=== PATIENT | female | born 1970 | race Two or more races ===

== ENCOUNTER 2018-10-31 18:47 | Emergency (ER) | payer MEDICAID ==
--- OUTSIDE RECORDS SUMMARY | ~2018-10-31 | XMS | Clinical Summary ---
Demographics + + + | Address | [address] | | | [place] [address] | + + + | Home Phone | | + + + | Preferred Language | Unknown | + + + | Marital Status | Single | + + + | Orthodoxy Affiliation | Unknown | + + + [...] Phone | + + +---------+ + | YARY AGRAWAL | ECON | Unknown | | + + +---------+ + Care Team Providers + +------+ + | Care Traffic Attendant Name | Role | Phone | + +------+ + | Nicholas Denney DO | PP | Unavailable | + +------+ + Source Comments DELFINO is fully live on both [facility] Amb[facility] and [facility] InPatient.[facility] Allergies No Known Allergies Current Medications + + +-------+---------+------+------+-------+ | Prescription | Sig. | Disp. | Refills | Star | End | Statu | | | | | | t | Date | s | | | | | | Date | | | + + +-------+---------+------+------+-------+ | LEVOXYL OR | None Entered | | | | | Activ | | | | | | | | e | + + +-------+---------+------+------+-------+ | WELLBUTRIN OR | 25mg daily | | | | | Activ | | | | | | | | e | + + +-------+---------+------+------+-------+ | IBUPROFEN 600 MG | take 1 tablet | | | | | Activ | | TAB | (600mg) by oral | | | | | e | | | route 3 times per | | | | | | | | day with food | | | | | | + + +-------+---------+------+------+-------+ Active Problems Not on file Social History [...] on file | | + + + Last Filed Vital Signs + + + + | Vital Sign | Reading | Time Taken | + + + + | Blood Pressure | 100/58 | 01/08/2006 9:53 AM PDT | + + + + | Pulse | 60 | 01/08/2006 9:53 AM PDT | + + + + | Temperature | - | - | + + + + | Respiratory Rate | - | - | + + + + | Oxygen Saturation | - | - | + + + + | Inhaled Oxygen | - | - | | Concentration | | | + + + + | Weight | 67.8 kg (149 lb 8 | 01/08/2006 9:53 AM PDT | | | oz) | | + + + + | Height | - | - | + + + + | Body Mass Index | - | - | + + + + Plan of Treatment + + + + + | Health Maintenance | Due Date | Last Done | Comments | + + + + + | Pneumococcal (Adult) | | | | | (1 of 1 - PPSV23) | 9 | | | + + + + + | Influenza (Flu) | | | | | vaccination (#1) | 8 | | | + + + + + Results Not on filefrom Last 3 Months"
--- OUTSIDE RECORDS SUMMARY | ~2018-10-31 | XMS | Clinical Summary ---
Demographics + + + | Address | [address] | | | [place] [address] | + + + | Home Phone | | + + + | Preferred Language | Unknown | + + + | Marital Status | Single | + + + | Caodaism Affiliation | Unknown | + + + [...] Team Providers + +------+ + | Care Rubber Stamp Die Inspector Name | Role | Phone | + +------+ + | Nicholas Denney DO | PP | Unavailable | + +------+ + Source Comments DELFINO is fully live on both [facility] and [facility] Allergies No Known Allergies Current Medications [...]
--- OUTSIDE RECORDS SUMMARY | 2018-10-31 18:50 | XMS ---
PreManage Notification: STAR HO Security Project Manager/Design Manager Events No recent Security Events currently on file [facility] There are no care providers on record at this time. [facility] has no Care Guidelines for this patient. [place] VISIT COUNT (12 MO.) 1 ED [place] TOTAL 1 NOTE: Visits indicate total known visits. ED/UCC VISIT TRACKING (12 MO.) 10/31/2018 18:47 ED [place] TYPE: Emergency COMPLAINT: - RIGHT LEG PAIN INPATIENT VISIT TRACKING (12 MO.) No inpatient visits to display in this time frame [email or web address]
== END 2018-10-31 20:51 | disposition left against medical advice (07) ==
LOC: ED 18:47
DX: M79.604 Pain in right leg (principal); F17.200 Nicotine dependence, unspecified, uncomplicated
CPT/HCPCS: 99283-25

== ENCOUNTER 2019-06-19 01:39 | Observation (INO) | payer OTHER ==
[~2019-06-19] VITALS: Ht 167.6 cm; Wt 71.3 kg
--- OUTSIDE RECORDS SUMMARY | ~2019-06-19 | XMS | Encounter Summary ---
Demographics + + + | Address | [address] | | | [place] [address] | + + + | Home Phone | | + + + | Preferred Language | Unknown | + + + | Marital Status | Single | + + + | Yazidi Affiliation | Unknown | + + + | Race | White | + + + | Ethnic Group | Not or | + + + Author + + + | Organization | Unknown | + + + | Address | Unknown | + + + | Phone | Unavailable | + + + Support + + +---------+ + | Name | Relationship | Address | Phone | + + +---------+ + | Christine Pacheco | ECON | Unknown | | + + +---------+ + Care Team Providers + +------+ + | Care Inorganic Chemistry Teacher Name | Role | Phone | + +------+ + PCP | Unavailable | + +------+ + Encounter Details +--------+ + + + + | Date | Type | Department | Care Team | Description | +--------+ + + + + | 12/06/ | Office | | Note, Outpatient | Progress Note | | 2004 | Visit-Trans | | Clinic | | | | cribed | | | | +--------+ + + + + Social History + +-------+ +--------+------+ | Tobacco Use | Types | Packs/Day | Years | Date | | | | | Used | | + +-------+ +--------+------+ | Never Assessed | | | | | + +-------+ +--------+------+ + + + | Sex Assigned at | Date Recorded | | | | + + + | Not on file | | + + + + + + + | Job Start Date | Occupation | Industry | + + + + | Not on file | Not on file | Not on file | + + + + + + + + | Travel History | Travel Start | Travel End | + + + + + + | No recent travel history available. | + + documented as of this encounter Progress Notes Interface, Geographic Information Scientist In - 02/02/2005 7:08 AM PDTClinic Date: 12/07/2003 Clinic: [facility] Chief Complaint: Goiter and hyperactive thyroid. History of Present Illness: Ms. Villalobos is a 33-year-old woman with an insignificant past medical history who presents with feeling hyperactive, losing weight, hyperdefecation, feeling hot, anxiety, shortness of breath, and increased heart rate over the last 6 months. She believes she has lost about 25 pounds since her symptoms began, and she notes an enlargement of her thyroid gland over this 6-month period. She also notes some irritation in her eyes and notes that they are irritated by the light, wind, and her mother notes that they are "bugging out of her head." She also states she is having some difficulty swallowing certain foods. They feel like they are getting stuck in her throat. She has not noticed any changes in her voice. She had laboratory evaluation done on November 13, 2003, by her primary care provider, Dr. Dixon Jaramillo which reveals a total T4 of 28.9, a total T3 of 559 with an undetectable TSH. She did not have any imaging of her thyroid gland at that time nor is she taking any medications for this condition. Review of Systems: The patient is complaining of the symptoms noted in the history of present illness. The remainder of the complete 10 system review of systems is negative. Past Medical History: Status post hysterectomy for cervical dysplasia. Medications: None. Family History: Mother with hypothyroidism, nephew with hyperthyroidism, aunt with hyperthyroidism, and father of a heart attack at age 49. Social History: She smokes 1 pack per day. She is and has 4 children. She has a history of snorting methamphetamines and has not used any for the last week. Allergies: NKDA. Physical Examination Vital Signs: Weight 116.5 pounds, blood pressure 122/60, and heart rate 140 and regular. General: She is a very hyperactive female in no acute distress. HEENT: Her pupils are equal, round, and reactive to light and accommodation. Extraocular muscles are intact. She does have perhaps some doubling of her vision on extremes of gaze to the lateral superior left and right although this is difficult to assess. She may have some proptosis, but does have lid lag bilaterally. Neck: Supple, but she does have a goiter which is probably 100 g and measures at least 6 times normal size. She has no bruit and is slightly tender to palpation and regular in texture. There are no discrete nodules. Lungs: Clear to auscultation bilaterally. Heart: Regular rhythm. Tachycardic rate without murmurs, rubs, or gallops. Abdomen: Soft, nondistended, and nontender. Extremities: No clubbing, cyanosis, or edema. Neurologic: She does have a significant tremor in her bilateral outstretched extremities. Her reflexes in her bilateral upper extremities are 2+ bilaterally with normal relaxation phases. Skin: Warm, pink, and moist with no lesions. Psychiatric: She has a normal mood and affect and a somewhat rapid speech. Assessment and Plan 1. Hyperthyroidism, likely Graves' disease - Given the patient's symptoms, time course, and family history, the most likely diagnosis is Graves' disease. We will plan to initiate methimazole at 30 mg per day to gain control of her thyroid functions. We plan to check laboratory evaluation in 4 weeks and adjust the doses of her methimazole at that time. The patient was advised of the side effects of methimazole, what she can expect, and dangers of the medication. 2. We will also initiate metoprolol 50 mg extended release formula twice daily. She will plan to initiate 50 mg now and titrate up by heart rate as directed. She was also advised of the side effects of this medication. We will plan to see the patient back in our clinic in 2 months' time at which time we will discuss the more permanent treatment for her which given the size of her goiter will likely involve radioactive iodine ablation rather than continued methimazole therapy in order to induce remission. This patient was seen and examined with Dr. Ayleen Young who agrees with this assessment and plan. A total of 40 minutes was spent with this patient of which time, greater than 50% was spent in direct consultation with the patient regarding her illness. Janelle Gibbs M.D. Endocrinology Fellow Ayleen Young M.D. EULA / JADA [id number] / [id number] / [id number] / cc: Dixon Jaramillo M.D. [address], [place] [id number] signed by Interface, Geographic Information Scientist In at 02/02/2005 7:08 AM PDTdocumented in this encounter Plan of Treatment Not on filedocumented as of this encounter Visit Diagnoses Not on filedocumented in this encounter
--- OUTSIDE RECORDS SUMMARY | ~2019-06-19 | XMS | Encounter Summary ---
Demographics + + + | Address | [address] | | | [place] [address] | + + + | Home Phone | | + + + | Preferred Language | Unknown | + + + | Marital Status | Single | + + + | Episcopalian Affiliation | Unknown | + + + [...] Team Providers + +------+ + | Care Senior Stack Engineer Name | Role | Phone | + [...] as of this encounter Progress Notes Interface, Broomcorn Press Feeder In - 02/02/2005 7:08 AM PDTClinic Date: [...] Fellow Ayleen Young M.D. EULA / JADA [id number] / [id number] / [id number] / cc: Dixon Jaramillo M.D. [address], [place] [id number] signed by Interface, Broomcorn Press Feeder In at 02/02/2005 7:08 AM PDTdocumented in this encounter Plan of Treatment Not on filedocumented as of this encounter Visit Diagnoses Not on filedocumented in this encounter
--- OUTSIDE RECORDS SUMMARY | ~2019-06-19 | XMS | Encounter Summary ---
Demographics + + + | Address | [address] | | | [place] [address] | + + + | Home Phone | | + + + | Preferred Language | Unknown | + + + | Marital Status | Single | + + + | Congregation Affiliation | Unknown | + + + | Race | White | + + + | Ethnic Group | Not or | + + + Author + + + | Author | [facility] | + + + | Organization | [facility] | + + + | Address | Unknown | + + + | Phone | Unavailable | + + + Support + + +---------+ + | Name | Relationship | Address | Phone | + + +---------+ + | Christine Pacheco | ECON | Unknown | | + + +---------+ + Care Team Providers + +------+ + | Care Child Guidance Counselor Name | Role | Phone | + +------+ + PCP | Unavailable | + +------+ + Encounter Details +--------+ + + + + | Date | Type | Department | Care Team | Description | +--------+ + + + + | 01/08/ | Office | [facility], | Clinic, | Progress Note | | 2006 | Visit-Trans | DIABETES & | Endocrinology | | | | cribed | METABOLISM | | | +--------+ + + + [...] as of this encounter Progress Notes Interface, Squeak Rattle And Leak Repairer In - 01/10/2006 2:05 AM PDT [id number] [place] [id number] Clinic Date: 01/08/2006 Clinic: Endocrinology Subjective: Ms. Villalobos is a 35-year-old woman whom we last saw in 2003 for Graves disease. She returns now because of recurrent elevated thyroid blood test. I saw the patient with Dr. Gena Sierra, the Endocrinology fellow. I reviewed the patient's history, interviewed, and examined her and went over our recommendations with her. Please see Dr. Sierra' note for details of the encounter. Briefly, Ms. Villalobos had Graves disease documented back in 2003 with a very large gland. We treated her with a maximum allowable outpatient dose of 29 mCi of radioactive iodine. Following this, she became hypothyroid and was started on thyroxine at 100 mcg per day. She then was lost to follow up and did not have thyroid blood tests checked regularly. However, during this time, she was feeling well with no symptoms of hyperthyroidism or hypothyroidism. Most recently, the patient ran out of her thyroid medication about 2 weeks ago. One week ago, she went in to see a physician because of this, and he checked thyroid blood test. He informed her that her TSH was suppressed and her free T4 was high. She was then referred back to this clinic. The patient currently complains of fatigue and difficulty losing weight but no other symptoms of hyperthyroidism. She does complain of right eye protrusion, burning, and intermittent blurry vision. This has all been new over the past few months. She has not seen an eye doctor in over a year. Objective: General: Ms. Villalobos looks well today. She does have some right greater than left proptosis. This is obvious on examination. Vital Signs: Stable. Skin: Warm and dry. HEENT: Her right eye is slightly proptotic. Extraocular movements are intact without double vision. However, she does complain of blurring vision on the right. Globes are somewhat firm, but there is no chemosis. Examination of the retina shows normal optic disks bilaterally. Neck: She has a palpable thyroid gland of approximately 30 g. There are no masses and no adenopathy. Chest: Clear. Cardiac: Benign. Extremities: Deep tendon reflexes are normal to slightly brisk. There is a slight tremor on outstretched arms. Neurologic: Strength, gait, and mental status are intact. Assessment and Plan: History of Graves disease with probable recurrence, now based on the presence of a small goiter as well as elevated thyroid hormone levels. However, these thyroid hormone levels were measured only 1 week off the patient's exogenous thyroid hormone, and therefore, we are unsure as to the severity of her recurrent hyperthyroidism. We have requested that the patient wait another 2 to 3 weeks and then go into her local laboratory for blood testing. They will fax the results to us, and we will determine our next course of action. If she does have recurrent hyperthyroidism, another course of radioactive iodine would probably be optimal. However, we would like her seen by an director data before then to make sure she does not need any treatment or precautions due to her Graves eye disease. We have referred her to Dr. Uziel Washburn for this. Lisa Logan M.D. SHELIA / JADA [id number] / [id number] / [id number] / [id number] documented i n this encounter Plan of Treatment Not on filedocumented as of this encounter Visit Diagnoses Not on filedocumented in this encounter"
--- OUTSIDE RECORDS SUMMARY | ~2019-06-19 | XMS | Clinical Summary ---
Demographics + + + | Address | [address] | | | [place] [address] | + + + | Home Phone | | + + + | Preferred Language | Unknown | + + + | Marital Status | Single | + + + | Holiness Affiliation | Unknown | + + + | Race | White | + + + | Ethnic Group | Not or | + + + Author + + + | Author | NON REVENUE LOCATIONS | + + + | Organization | NON REVENUE LOCATIONS | + + + | Address | Unknown | + + + | Phone | Unavailable | + + + Support + + +---------+ + | Name | Relationship | Address | Phone | + + +---------+ + | Christine Pacheco | ECON | Unknown | | + + +---------+ + Care Team Providers + +------+ + | Care Finishing Pan Operator Name | Role | Phone | + +------+ + | Nicholas Denney DO | PCP | | + +------+ + Source Comments DELFINO is fully live on both [facility] Amb[facility] and [facility] InPatient.[facility] Allergies No Known Allergies Medications + + + +---------+------+------+-------+ | Medication | Sig | Dispensed | Refills | Star | End | Statu | | | | | | t | Date | s | | | | | | Date | | | + + + +---------+------+------+-------+ | LEVOXYL OR | None Entered | | 0 | | | Activ | | | | | | | | e | + + + +---------+------+------+-------+ | WELLBUTRIN OR | 25mg daily | | 0 | | | Activ | | | | | | | | e | + + + +---------+------+------+-------+ | IBUPROFEN 600 MG | take 1 tablet | | 0 | | | Activ | | TAB | (600mg) by oral | | | | | e | | | route 3 times per | | | | | | | | day with food | | | | | | + + + +---------+------+------+-------+ Active Problems Not on file Social History + +-------+ +--------+------+ | Tobacco Use | Types | Packs/Day | Years | Date | | | | | Used | | + +-------+ +--------+------+ | Current Every Day | | | | | | Smoker | | | | | + +-------+ +--------+------+ + + +---------+ + | Alcohol Use | Drinks/Week | oz/Week | Comments | + + +---------+ + | Not Asked | | | | + + +---------+ + + + + | Sex Assigned at [...] recent travel history available. | + + Last Filed Vital Signs + + + + + | Vital Sign | Reading | Time Taken | Comments | + + + + + | Blood Pressure | 100/58 | 01/08/2006 9:53 AM | | | | | PDT | | + + + + + | Pulse | 60 | 01/08/2006 9:53 AM | | | | | PDT | | + + + + + | Temperature | - | - | | + + + + + | Respiratory Rate | - | - | | + + + + + | Oxygen Saturation | - | - | | + + + + + | Inhaled Oxygen | - | - | | | Concentration | | | | + + + + + | Weight | 67.8 kg (149 lb 8 | 01/08/2006 9:53 AM | | | | oz) | PDT | | + + + + + | Height | - | - | | + + + + + | Body Mass Index | - | - | | + + + + + Plan of Treatment + + + + + | Health Maintenance | Due Date | Last Done | Comments | + + + + + | Pneumococcal | | | | | vaccination (1 of 1 | 6 | | | | - PPSV23) | | | | + + + + + | Influenza (Flu) | | | | | vaccination (#1) | 9 | | | + + + + + Results Not on filefrom Last 3 Months"
--- OUTSIDE RECORDS SUMMARY | ~2019-06-19 | XMS | Encounter Summary ---
Demographics + + + | Address | [address] | | | [place] [address] | + + + | Home Phone | | + + + | Preferred Language | Unknown | + + + | Marital Status | Single | + + + | Gnosticist Affiliation | Unknown | + + + [...] Team Providers + +------+ + | Care Reefer Engineer Name | Role | Phone | + +------+ + PCP | Unavailable | + +------+ + Encounter Details +--------+ + + + + | Date | Type | Department | Care Team | Description | +--------+ + + + + | 03/28/ | Results | | Other, Faculty | | | 2003 | Only | | [phone] | | +--------+ + + + + [...] + + documented as of this encounter Plan of Treatment Not on filedocumented as of this encounter Procedures + +--------+ + + + | Procedure Name | Priori | Date/Time | Associated Diagnosis | Comments | | | ty | | | | + +--------+ + + + | FREE T4 | Routin | 03/28/2004 | | Results for this | | | e | 5:23 PM | | procedure are in the | | | | PDT | | results section. | + +--------+ + + + | TSH | Routin | 03/28/2004 | | Results for this | | | e | 5:23 PM | | procedure are in the | | | | PDT | | results section. | + +--------+ + + + documented in this encounter Results TSH-THYROID STIM HORMONE (03/28/2004 5:23 PM PDT) + + + + + + | Component | Value | Ref Range | Performed | Pathologist | | | | | At | Signature | + + + + + + | TSH | < 0.01 (L)Comment: | 0.28 - 5.00 | | | | | Test performed by [facility] | uIU/ml | | | | | [facility] | | | | | | Laboratories. | | | | + + + + + + + + | Specimen | + + | | + + + + + | Narrative | Performed At | + + + | Ordered by UNKNOWN DOCTOR | | + + + + + + + + | Performing | Address | City/State/Zipcode | Phone Number | | Organization | | | | + + + + + | [facility] | [address] | [place] [address] | | | LABORATORY | | | | + + + + + FREE T4, SERUM (03/28/2004 5:23 PM PDT) + + + + + + | Component | Value | Ref Range | Performed | Pathologist | | | | | At | Signature | + + + + + + | FREE T4, | 1.7Comment: Test | 0.7 - 1.8 ng/dL | | | | SERUM | performed by [place] | | | | | | [facility] | | | | | | Laboratories. | | | | + + + + + + + + | Specimen | + + | | + + + + + | Narrative | Performed At | + + + | Ordered by UNKNOWN DOCTOR | | + + + + + + + + | Performing | Address | City/State/Zipcode | Phone Number | | Organization | | | | + + + + + | [facility] | [address] | [place] [address] | | | LABORATORY | | | | + + + + + documented in this encounter Visit Diagnoses Not on filedocumented in this encounter"
--- OUTSIDE RECORDS SUMMARY | ~2019-06-19 | XMS | Encounter Summary ---
Demographics + + + | Address | [address] | | | [place] [address] | + + + | Home Phone [...] Team Providers + +------+ + | Care Pit Clerk Name | Role | Phone | + +------+ + PCP | Unavailable | + +------+ + Encounter Details +--------+ + + + + | Date | Type | Department | Care Team | Description | +--------+ + + + + | 03/28/ | Results | | Other, Faculty | | | 2003 | Only | | [phone] | | +--------+ + + + + [...] | uIU/ml | | | | | [facility] | | | | | [...] | + + + + + | [facility] | [address] | [place] [address] | | | LABORATORY | | | [...] | | | SERUM | performed by [facility] | | | | | | [facility] | | | | | | [...] + + + | [facility] | [address] | [place] [address] | | | LABORATORY | | | | + + + + + documented in this encounter Visit Diagnoses Not on filedocumented in this encounter"
--- OUTSIDE RECORDS SUMMARY | ~2019-06-19 | XMS | Encounter Summary ---
Demographics + + + | Address | [address] | | | [place] [address] | + + + | Home Phone | | + + + | Preferred Language | Unknown | + + + | Marital Status | Single | + + + | Mu-Ism Affiliation | Unknown | + + + | Race | White | + + + | Ethnic Group | Not or | + + + Author + + + | Author | [facility] | + + + | Organization | [facility] | + + + | Address | Unknown | + + + | Phone | Unavailable | + + + Support + + +---------+ + | Name | Relationship | Address | Phone | + + +---------+ + | Christine Pacheco | ECON | Unknown | | + + +---------+ + Care Team Providers + +------+ + | Care Co Chairman Name | Role | Phone | + +------+ + PCP | Unavailable | + +------+ + Encounter Details +--------+ + + + + | Date | Type | Department | Care Team | Description | +--------+ + + + + | 02/22/ | Results | Endocrinology, | Lisa Logan MD | | | 2003 | Only | Diabetes and | [address] | | | | | Clinical Nutrition | Megan [place], | | | | | [address] | [place] [address] | | | | | Loop Mailcode: OPC5 | [phone] | | | | | Outpatient Clinic | | | | | | [place] | | | | | | [place] [address] | | | | | | [phone] | | | +--------+ + + + [...] | + +--------+ + + + | NM THYROID | Routin | 02/23/2004 | | Results for this | | RADIOPHARMACEUTICAL | e | 12:50 PM | | procedure are in the | | THERAPY HYPER | | PDT | | results section. | + +--------+ + + + | NM THYROID UPTAKE | Routin | 02/23/2004 | | Results for this | | SINGLE DETERMINATION | e | 10:19 AM | | procedure are in the | | | | PDT | | results section. | + +--------+ + + + documented in this encounter Results NM THYROID RX HYPER INT W EVL (02/23/2004 12:50 PM PDT) + + + + + + | Component | Value | Ref Range | Performed | Pathologist | | | | | At | Signature | + + + + + + | NM THYROID | Radiologist 1: SAM, | | | | | RX HYPER | [facility] | | | | | INT [address] ALFONSO | Luke-Radiologist 2: | | | | | | JARVIS SMALL | | | | | | IODINE THERAPY FOR | | | | | | HYPERTHYROIDISM CLINICAL | | | | | | HISTORY: 34 y.o. female | | | | | | with hyperthyroidism | | | | | | anddiffusely enlarged | | | | | | thyroid gland. | | | | | | PROCEDURE: 6.88 | | | | | | microCuries of I-123 | | | | | | were administered, | | | | | | incapsular formulation, | | | | | | to the patient on | | | | | | 02/22/04. The | | | | | | patientreturned 24 hours | | | | | | later for uptake and | | | | | | imaging scan. | | | | | | Backgroundand patient | | | | | | counts were recorded | | | | | | with a thyroid probe. | | | | | | The thyroidgland was | | | | | | imaged in the anterior, | | | | | | right anterior oblique, | | | | | | and leftanterior oblique | | | | | | projections. The dose | | | | | | ingested measured 63068 | | | | | | counts per minute (cpm). | | | | | | Labbackground | | | | | | radiation measured 4857 | | | | | | cpm. The thyroid | | | | | | patient probemeasured | | | | | | 9153 cpm. The | | | | | | calculated 24 hour | | | | | | thyroid uptake is77.6%. | | | | | | The images demonstrate | | | | | | overall increased | | | | | | thyroid iodine uptake. | | | | | | After a PARQ conference | | | | | | was held with the | | | | | | patient | | | | | | (includingexplanation of | | | | | | the risks, benefits, | | | | | | and alternatives), the | | | | | | patientconsented to | | | | | | receive radioactive | | | | | | iodine treatment for | | | | | | medicallyrefractive | | | | | | hyperthyroidism. The | | | | | | patient's recent I-131 | | | | | | uptake was77.6 percent. | | | | | | The thyroid gland | | | | | | weight was estimated to | | | | | | beapproximately 200 | | | | | | grams by palpation. A | | | | | | dose of 29.9 | | | | | | millicurieswas | | | | | | calculated and agreed | | | | | | upon for the patient by | | | | | | consultationwith the | | | | | | referring physician | | | | | | Lisa Logan. After | | | | | | positivelyidentifying | | | | | | the patient, the patient | | | | | | was given an oral | | | | | | capsulecontaining 29.30 | | | | | | milliCuries of I-131. | | | | | | The patient was sent | | | | | | homewith printed post | | | | | | therapy instructions to | | | | | | prevent | | | | | | radiationcontamination. | | | | | | She agrees to arrange | | | | | | for separate | | | | | | transportationhome for | | | | | | her children and Mother. | | | | | | No immediate | | | | | | complicationsoccurred. | | | | | | FINDINGS: 24 hour | | | | | | uptake is 77.6%. | | | | | | IMPRESSION: 1. 24 hour | | | | | | uptake of 77.6%. 2. | | | | | | Successful | | | | | | administration of I-131 | | | | | | 29.9 millicuries | | | | | | withoutimmediate | | | | | | complication. | | | | + + + + + + + + | Specimen | + + | | + + + +---------+ + + | Performing | Address | City/State/Zipcode | Phone Number | | Organization | | | | + +---------+ + + | [facility] DEPARTMENT OF | | | | | RADIOLOGY | | | | + +---------+ + + NM THYROID UPTAKE ONLY (02/23/2004 10:19 AM PDT) + + + + + + | Component | Value | Ref Range | Performed | Pathologist | | | | | At | Signature | + + + + + + | NM THYROID | Radiologist 1: SAM, | | | | | UPTAKE ONLY | [facility] | | | | | | Luke-Radiologist 2: | | | | | | JARVIS SMALL | | | | | | IODINE THERAPY FOR | | | | | | HYPERTHYROIDISM CLINICAL | | | | | | HISTORY: 34 y.o. female | | | | | | with hyperthyroidism | | | | | | anddiffusely enlarged | | | | | | thyroid gland. | | | | | | PROCEDURE: 6.88 | | | | | | microCuries of I-123 | | | | | | were administered, | | | | | | incapsular formulation, | | | | | | to the patient on | | | | | | 02/22/04. The | | | | | | patientreturned 24 hours | | | | | | later for uptake and | | | | | | imaging scan. | | | | | | Backgroundand patient | | | | | | counts were recorded | | | | | | with a thyroid probe. | | | | | | The thyroidgland was | | | | | | imaged in the anterior, | | | | | | right anterior oblique, | | | | | | and leftanterior oblique | | | | | | projections. The dose | | | | | | ingested measured [id number] | | | | | | counts per minute (cpm). | | | | | | Labbackground | | | | | | radiation measured 4857 | | | | | | cpm. The thyroid | | | | | | patient probemeasured | | | | | | 9153 cpm. The | | | | | | calculated 24 hour | | | | | | thyroid uptake is77.6%. | | | | | | The images demonstrate | | | | | | overall increased | | | | | | thyroid iodine uptake. | | | | | | After a PARQ conference | | | | | | was held with the | | | | | | patient | | | | | | (includingexplanation of | | | | | | the risks, benefits, | | | | | | and alternatives), the | | | | | | patientconsented to | | | | | | receive radioactive | | | | | | iodine treatment for | | | | | | medicallyrefractive | | | | | | hyperthyroidism. The | | | | | | patient's recent I-131 | | | | | | uptake was77.6 percent. | | | | | | The thyroid gland | | | | | | weight was estimated to | | | | | | beapproximately 200 | | | | | | grams by palpation. A | | | | | | dose of 29.9 | | | | | | millicurieswas | | | | | | calculated and agreed | | | | | | upon for the patient by | | | | | | consultationwith the | | | | | | referring physician | | | | | | Lisa Logan. After | | | | | | positivelyidentifying | | | | | | the patient, the patient | | | | | | was given an oral | | | | | | capsulecontaining 29.30 | | | | | | milliCuries of I-131. | | | | | | The patient was sent | | | | | | homewith printed post | | | | | | therapy instructions to | | | | | | prevent | | | | | | radiationcontamination. | | | | | | She agrees to arrange | | | | | | for separate | | | | | | transportationhome for | | | | | | her children and Mother. | | | | | | No immediate | | | | | | complicationsoccurred. | | | | | | FINDINGS: 24 hour | | | | | | uptake is 77.6%. | | | | | | IMPRESSION: 1. 24 hour | | | | | | uptake of 77.6%. 2. | | | | | | Successful | | | | | | administration of I-131 | | | | | | 29.9 millicuries | | | | | | withoutimmediate | | | | | | complication. | | | | + + + + + + + + | Specimen | + + | | + + + +---------+ + + | Performing | Address | City/State/Zipcode | Phone Number | | Organization | | | | + +---------+ + + | [facility] DEPARTMENT OF | | | | | RADIOLOGY | | | | + +---------+ + + documented in this encounter Visit Diagnoses Not on filedocumented in this encounter"
--- OUTSIDE RECORDS SUMMARY | ~2019-06-19 | XMS | Encounter Summary ---
Demographics + + + | Address | [address] | | | [place] [address] | + + + | Home Phone | | + + + | Preferred Language | Unknown | + + + | Marital Status | Single | + + + | Mandaen Affiliation | Unknown | + + + [...] Team Providers + +------+ + | Care Deburring And Tooling Machine Operator Name | Role | Phone | + +------+ + PCP | Unavailable | + +------+ + Encounter Details +--------+ + + + + | Date | Type | Department | Care Team | Description | +--------+ + + + + | 02/14/ | Office | | Note, Outpatient | [...] as of this encounter Progress Notes Interface, Sales And Production Manager In - 02/02/2005 8:17 AM PDTClinic Date: 02/15/2004 Clinic: [facility] Referring Physician: Dixon Jaramillo M.D. Diagnosis: Graves' disease. Subjective: Ms. Villalobos is here today for her 2-month followup of her Graves' hyperthyroidism. She has been taking her methimazole 20 mg per day rather than the 30 mg per day which we had previously prescribed secondary to an error in the pharmacy writing order for 10 mg three times a day. She has only been able to take it twice a day. She has been taking her metoprolol XL daily throughout the last 2 months but has been out of the medication for the last 3 days and thus far is not feeling any shakiness or racing of her heart. She continues to have bowel movements, 2 per day which has improved over her previous visit. Overall, she is feeling much better. She does still complain that her eyes appear to be more bulgy than they used to be, and she does have some blurring of her vision as well as some rare double vision which is easily correctible with concentrating on what she is looking at. She tolerated the initiation of the methimazole well, only experiencing some itching without rash. Currently, she is not experiencing any of these symptoms. She is here today to discuss further options for treatment of her Graves' disease and also has a question about her daughter on whether she may also have a thyroid condition. Her daughter is present with her today. Objective Vital Signs: Weight 145.4 pounds, blood pressure 128/50, heart rate 96 and regular, and respirations 16. HEENT: Her pupils are equal round reactive to light and accommodation. She may have some very slight chemosis of the sclera bilaterally. There is no scleral injection. She has no periorbital edema. There is no obvious proptosis. There is no lid lag. Neck: Neck is supple. She has a large goiter which has some areas of irregular texture including some thickened areas at the right upper pole. The gland measures at least 100 g. It is nontender, and there are no discrete nodules. Lungs: Lungs are clear to auscultation bilaterally. Heart: Regular rate and rhythm without murmurs, rubs, or gallops. Extremities: There is no tremor in the bilateral outstretched extremities. Reflexes in bilateral upper extremities and lower extremities are 2+ bilaterally. Skin: Skin is normal, warmth, texture, and moisture. Neurologic: Mood and affect is calm. There is no evidence of rapid speech. She appears to have a normal mood and affect. Assessment and Plan 1. Graves' hyperthyroidism: The patient appears to be clinically controlled with her dose of methimazole. She states that she did have laboratory tests done 1 month after starting on the methimazole, but these results were never faxed to us. Her symptoms overall are much improved. She does not appear to have any severe degree of eye disease associated with her Graves' disease. Today, we spent an extensive period of time discussing with her options for treatment of her Graves' disease. She has a very large goiter and therefore is a poor candidate for remission on antithyroid drug therapy. After a discussion of the risks of possible worsening of her eye disease following radioactive iodine ablation, it was decided that we should initiate treatment with radioactive iodine. We will plan to stop the patient's antithyroid drugs 4 days prior to the uptake and resume the drugs 4 days after the treatment dose of radioactive iodine. She will also continue to take her Toprol XL 50 mg twice daily as needed for her adrenergic symptoms related to her hyperthyroidism. She will be given additional samples today. 2. Daughter with goiter: The patient's daughter was in the room and per the patient's request, we briefly examined her daughter and demonstrated that she has a goiter as well. She has a thyroid gland that is enlarged too, approximately 3 times normal size with also thickening in the right upper pole similar to her mother. The patient appears to be euthyroid on exam. She is not describing any symptoms that would be consistent with hyperthyroidism or hypothyroidism at this time. Per the mother's request, we have sent the patient with a lab slip requesting a TSH and free T4 measurement as well as an anti-TPO antibodies. Given that she has an area of thickening in her right upper pole of the thyroid gland and her young age, we elected to obtain a thyroid ultrasound to evaluate for nodules. The results of this evaluation will also be sent to us here. This patient was seen and examined with Dr. Lisa Logan who agrees with this assessment and plan. A total 40 minutes was spent with this patient of which time greater than 50% was spent in direct consultation with the patient regarding her diagnosis and treatment plan. Janelle Gibbs M.D. Endocrinology Fellow Lisa Logan M.D. EULA / [id number] / [id number] / [id number] / [id number] cc: Dixon Jaramillo M.D. [address] [place], [place] [id number] signed by Interface, Sales And Production Manager In at 02/02/2005 8:17 AM PDTdocumented in this encounter Plan of Treatment Not on filedocumented as of this encounter Visit Diagnoses Not on filedocumented in this encounter"
--- OUTSIDE RECORDS SUMMARY | ~2019-06-19 | XMS | Encounter Summary ---
Demographics + + + | Address | [address] | | | [place] [address] | + + + | Home Phone | | + + + | Preferred Language | Unknown | + + + | Marital Status | Single | + + + | Denominational Affiliation | Unknown | + + + [...] Team Providers + +------+ + | Care Glass Deposition Tender Name | Role | Phone | + +------+ + PCP | Unavailable | + +------+ + Encounter Details +--------+ + + + + | Date | Type | Department | Care Team | Description | +--------+ + + + + | 01/08/ | Office | | Report, Outpatient | Progress Note | | 2006 | Visit-Trans | | Consultation | | | | cribed | | [...] as of this encounter Progress Notes Interface, Seat Builder In - 01/17/2006 2:06 AM PDT [id number] [place] [id number] Referred From and Faxed To: Referred To: Kaelyn Sierra M.D. Consulting Physician: Kaelyn Sierra M.D. Consultation Date: 01/08/2006 Clinic Name: Endocrine Clinic The patient was seen with Dr. Logan. History of Present Clinic: The patient is a 35-year-old woman with diagnosis of Graves' disease in 2003. At that time, she had seen Dr. King and Dr. Logan. She was treated briefly with methimazole to cool down the hyperthyroidism, and then, she did have an uptake thyroid scan which was 77.6%. She did get radioactive iodine treatment in February 2004 with 29 mc as an outpatient secondary to her gland being 200 g. It did shrink to a normal size per the patient, and eventually, she was called by Dr. King and was placed on Levoxyl 100 mcg per day, and she had been taking this since 2003 until about a couple of weeks ago when she stopped taking her medication because she ran out. She was off her medication about 5 days prior to a lab test by her PCP in [place]. She reports that antibodies were high and that she had a high T4 and that her TSH was blocked. She is complaining of being tired, being more white despite her having taken the medications, and she reports that she was told that she had high triglycerides and glucose as well. Review of Systems: No tremor, no anxiety, and no diarrhea. Occasional palpitations and occasional constipation. She does have some hair falling complaints. No dry skin, no changes in her nails. She is gaining weight. As far as her eyes, her right eye pops out greater than the left. She is complaining of some blurriness, no diplopia. She does have some cameron feeling in her eyes. She is also complaining of pains in her right eye for the last 2 months. Of note, when she had the radioactive iodine treatment, it did not have any effect on her eye. It did not cause pain or tearing. Allergies: None. Medications: She was on Levoxyl 100 mcg per day. She was taking Wellbutrin 25 mg and ibuprofen as needed. Past Medical History: Shoulder pain and a partial hysterectomy. Social History: She does smoke 2 to 3 cigarettes per day and occasional alcohol. Family History: Positive for mother having hypothyroidism as well as nephews having some kind of hypothyroidism, and an aunt with hyperthyroidism. Her father of a heart attack, age 49. Physical Examination: Vital Signs: Blood pressure 100/56, pulse of 60, and she weighs 149.5 that is an increase of 4 pounds since 2003. General: She is in no acute distress. She does not feel warm to touch and no diaphoresis. HEENT: Her extraocular movements are intact. Her thyroid is about 2 times normal, rubbery in consistency. No retinopathy. She does not have any lid lag. Cardiovascular: Regular rate and rhythm. Lungs: Clear. Abdomen: Her bowel sounds are decreased. Soft, nontender, and nondistended abdomen. Extremities: No edema. She does have a slight tremor. Deep tendon reflexes are 2+. Skin: Dry. Laboratory: We do not have any recent labs. Assessment and Plan: She is a 34-year-old woman with history of Graves' disease, and a history of having a large thyroid of 200 g necessitating radioactive iodine 29 mc back in February 2004. On physical exam, it is notable that her thyroid is about 2 times normal. It is highly suspicious that her Graves' disease has recurred. The question is whether this is overt versus subclinical Graves' disease versus mediation overdosage. We will first begin by getting thyroid function tests which will include a total T3. This patient was given prescription to do it locally in [place]. Once we obtain the results, we will be calling the patient. No Levoxyl for now since the goal is to get the thyroid function tests in 3 weeks once she is off the medication for a total of 4 weeks. She also was given a referral to see Dr. Uziel Washburn, corner former at [facility], for her Graves' ophthalmology, especially given that she is complaining of pain, and therefore, active disease. Pending the results of her thyroid function tests and Ophthalmology evaluation, we will have to talk with the patient whether a radioactive iodine is suitable for her if she does have active disease. It might be best to pursue surgical options first. We will be calling the patient to schedule return visit. Kaelyn Sierra M.D. VTCarley / [id number] / [id number] / [id number] / [id number] Electronically signed by Lisa Logan 01-16-2006 03:18:33 PM documented i n this encounter Plan of Treatment Not on filedocumented as of this encounter Visit Diagnoses Not on filedocumented in this encounter"
--- OUTSIDE RECORDS SUMMARY | ~2019-06-19 | XMS | Encounter Summary ---
Demographics + + + | Address | [address] | | | [place] [address] | + + + | Home Phone | | + + + | Preferred Language | Unknown | + + + | Marital Status | Single | + + + | Pentecostalism Affiliation | Unknown | + + + | Race | White | + + + | Ethnic Group | Not or | + + + Author + + + | Author | [facility] | + + + | Organization | [facility] | + + + | Address | Unknown | + + + | Phone | Unavailable | + + + Support + + +---------+ + | Name | Relationship | Address | Phone | + + +---------+ + | Christine Pacheco | ECON | Unknown | | + + +---------+ + Care Team Providers + +------+ + | Care Geoduck Diver Name | Role | Phone | + +------+ + PCP | Unavailable | + +------+ + Encounter Details +--------+ + + + + | Date | Type | Department | Care Team | Description | +--------+ + + + + | 01/08/ | Office | Endocrinology, | Kaelyn Sierra | | | 2005 | Visit-ECX | Diabetes and | [address] | | | | | Clinical Nutrition | [facility] | | | | | [address] | [place] [address] | | | | | Loop Mailcode: OPC5 | | | | | | Outpatient Clinic | | | | | | [facility] | | | | | | [place] [address] | | | | | | [phone] | | | +--------+ + + + [...] + + documented as of this encounter Last Filed Vital Signs + + + [...] + + + documented in this encounter Plan of Treatment Not on filedocumented as of this encounter Visit Diagnoses Not on filedocumented in this encounter"
--- OUTSIDE RECORDS SUMMARY | ~2019-06-19 | XMS | Encounter Summary ---
Demographics + + + | Address | [address] | | | [place] [address] | + + + | Home Phone | | + + + | Preferred Language | Unknown | + + + | Marital Status | Single | + + + | Taoism Affiliation | Unknown | + + + | Race | White | + + + | Ethnic Group | Not or | + + + Author + + + | Author | [facility] | + + + | Organization | [facility] | + + + | Address | Unknown | + + + | Phone | Unavailable | + + + Support + + +---------+ + | Name | Relationship | Address | Phone | + + +---------+ + | Christine Pacheco | ECON | Unknown | | + + +---------+ + Care Team Providers + +------+ + | Care Shuttle Fixer Name | Role | Phone | + +------+ + PCP | Unavailable | + +------+ + Encounter Details +--------+ + + + + | Date | Type | Department | Care Team | Description | +--------+ + + + + | 06/20/ | Office | [facility] | Clinic, | Progress Note | | 2003 | Visit-Trans | DIABETES & | Endocrinology [...] as of this encounter Progress Notes Interface, Sweatband Decorating Machine Operator In - 02/02/2005 9:09 AM PDT [id number] [facility] Date: 06/20/2004 Clinic: Endocrinology Diagnosis: Graves' hyperthyroidism, treated with radioactive iodine ablation. Subjective: Ms. Villalobos is here today to followup on her Graves' disease. She continues to complain of some problems with her eyes including some swelling around her eyes and dryness and tearing. She is not complaining of any scleral injection or significant visual disturbances including no double vision. She does say that her eyes are not as good as they were several years ago. As far as her visual acuity is concerned, this can be corrected with lenses. She is complaining of some tiredness and unmotivated feelings for the last several weeks. She also states that she had some significant weight gain. On her first visit to us here, she weighed 114 pounds, and now she is up to 152 pounds. She has been taking 100 mcg of Synthroid for the last 6 weeks. She does state that she is feeling somewhat better since she started this medication. When she started the Synthroid, her TSH was elevated. She is not complaining of any symptoms of hyperthyroidism at this time. She denies heart palpitations or tremor. Objective Vital Signs: Heart rate is 70 and regular, weight is 152.9 pounds. General: She is somewhat fatigued appearing and has gained some weight, but is no acute distress. HEENT: Her pupils are equal reactive to light and accommodation. Extraocular muscles are intact. There is no doubling of vision on extremes of gaze. Her eyes measure 18 mm with proptosis bilaterally. There is no periorbital edema. Neck: Supple. Her thyroid measures about 30 to 40 g in size and is somewhat irregular in texture, but is not tender to the touch. There are no discrete nodules and no lymphadenopathy. Lungs: Clear are to auscultation bilaterally. Heart: Regular rate and rhythm without murmurs, rubs, or gallops. Extremities: No clubbing, cyanosis, or edema. There is no tremor in the outstretched extremities bilaterally. Skin: Pale, warm, and well perfused without diaphoresis. Laboratory Data: Laboratories obtained today reveal a TSH suppressed at 0.05 and a free T4 that is 1.3. Assessment and Plan 1. Graves' disease with previous hyperthyroidism, treated with radioactive iodine ablation, now with postablative hypothyroidism. The patient has been taking 100 mcg of Synthroid once daily. She is doing well on this dose. She does complain of fatigue and lack of motivation. This is most likely secondary to her abrupt shift from hyperthyroidism to hypothyroidism and now with normalization of her thyroid functions. She may be slightly over treated with levothyroxine at this time. We will plan to continue her on this dose for another 6 weeks, given that her free T4 is in the normal range. If she persists in having a suppressed TSH at next laboratory check, we will plan to reduce the dose to 88 mcg per day. 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 Upon recheck today, her globes bilaterally are 18 mm. She did have right eye proptosis greater than left on last which was 23 mm. This has somewhat improved. She does persist in smoking 1 pack per day of cigarettes. She is interested in quitting this. Today, we prescribed for her nicotine patches at 14 mg per day and Wellbutrin 150 mg twice daily which may also be useful for her mild depression and her lack of motivation. This patient was seen and examined with Dr. Henrry Shultz who agrees with this assessment and plan. Janelle Gibbs M.D. Endocrinlogy Fellow Henrry Shultz M.D. [place] / [id number] / [id number] / [id number] / [id number] cc: Dixon Jaramillo M.D. [address] [place] [address] [id number] documented i n this encounter Plan of Treatment Not on filedocumented as of this encounter Visit Diagnoses Not on filedocumented in this encounter"
--- OUTSIDE RECORDS SUMMARY | ~2019-06-19 | XMS | Encounter Summary ---
Demographics + + + | Address | [address] | | | [place] [address] | + + + | Home Phone | | + + + | Preferred Language | Unknown | + + + | Marital Status | Single | + + + | Catholic Affiliation | Unknown | + + + [...] Team Providers + +------+ + | Care Acquisition Professional Name | Role | Phone | + +------+ + PCP | Unavailable | + +------+ + Encounter Details +--------+ + + + + | Date | Type | Department | Care Team | Description | +--------+ + + + + | 03/28/ | Results | | Other, Faculty | | | 2003 | Only | | [phone] | | +--------+ + + + + [...] | uIU/ml | | | | | [facility] | | | | | [...] | + + + + + | [facility] | [address] | [place] [address] | | | LABORATORY | | | [...] | | | SERUM | performed by [place] | | | | | | [facility] | | | | | | [...] + + + | [facility] | [address] | [place] [address] | | | LABORATORY | | | | + + + + + documented in this encounter Visit Diagnoses Not on filedocumented in this encounter"
--- OUTSIDE RECORDS SUMMARY | ~2019-06-19 | XMS | Encounter Summary ---
Demographics + + + | Address | [address] | | | [place] [address] | + + + | Home Phone | | + + + | Preferred Language | Unknown | + + + | Marital Status | Single | + + + | Worship Affiliation | Unknown | + + + | Race | White | + + + | Ethnic Group | Not or | + + + Author + + + | Author | [facility] | + + + | Organization | [facility] | + + + | Address | Unknown | + + + | Phone | Unavailable | + + + Support + + +---------+ + | Name | Relationship | Address | Phone | + + +---------+ + | Christine Pacheco | ECON | Unknown | | + + +---------+ + Care Team Providers + +------+ + | Care River Captain Name | Role | Phone | + +------+ + | Nicholas Denney DO | PCP | | + +------+ + Encounter Details +--------+ + + + + | Date | Type | Department | Care Team | Description | +--------+ + + + + | 01/07/ | Ancillary | Registration [id number] | | | | 2005 | [address] | [address] | | | | | [address] | [address] Mailcode: [id number] | | | | | | [place], [place] | | | | | | [address] | | | | | | [phone] | | | +--------+ + + + [...]
--- OUTSIDE RECORDS SUMMARY | ~2019-06-19 | XMS | Encounter Summary ---
Demographics + + + | Address | [address] | | | [place] [address] | + + + | Home Phone | | + + + | Preferred Language | Unknown | + + + | Marital Status | Single | + + + | Anabaptism Affiliation | Unknown | + + + [...] Team Providers + +------+ + | Care Exhauster Engineer Name | Role | Phone | [...] as of this encounter Progress Notes Interface, Heater Mechanic In - 02/02/2005 8:17 AM PDTClinic Date: 02/15/2004 Clinic: Endocrinology Subjective: I saw Ms. Villalobos in the Endocrinology [employer] today in conjunction with a senior Endocrinology fellow, Dr. Janelle King. I reviewed the patient's history, interviewed, and examined her and maneuvered the treatment plan with her and Dr. King. Please see Dr. King' note for details of the encounter. In brief, Ms. Villalobos was recently diagnosed with hyperthyroidism. Due to severe symptoms and a very large gland, she was placed on methimazole, which she is tolerating quite well. She currently takes 20 mg a day. On this dose, she reports marked improvement in her hyperthyroid symptoms. She is not quite back to normal but reports tremendous improvement. She does have some eye symptoms consistent with possible Graves' ophthalmopathy including some decreased vision and some tearing and pain in her eyes. She thinks that this is stable. 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 She has a 12-year-old daughter, whom her grandmother is taking of while she completes the treatment program. Objective General: Ms. Villalobos looks well today. She is a pleasant articulate woman. Vital Signs: Her pulse is 80 and regular. Skin: Warm and dry. HEENT: She does have some mild conjunctival injection and chemosis. Her extraocular movements are intact with no diplopia. Her globes are slightly firm, but she does not have obvious proptosis. Neck: Ms. Villalobos has a markedly enlarged thyroid gland. Each lobe is approximately 8 to 10 cm in length by 5 to 6 cm in diameter. The right lobe is slightly bigger than the left lobe. There are some lobulations, but I can feel no nodules. The gland is nontender. Chest and Cardiac: Benign. Neurologic: Deep tendon reflexes are normal, but slightly brisk. There is no tremor on outstretched arms. Assessment and Plan: Graves' disease with a markedly enlarged thyroid gland. The patient has had a good response to methimazole in terms of her symptoms. She is eager to have definitive treatment for this condition with radioactive iodine, and I agree with this decision. Her gland is so large that I doubt we would get a long-term remission with methimazole alone. I am a bit concerned about her mild eye disease. Therefore, I warned her that if any of her eye symptoms get worse with radioactive iodine treatment, she should call Dr. King or myself immediately, and we can initiate a course of prednisone. Since her eye disease is mild, I do not feel that radioactive iodine is contraindicated. We gave Ms. Villalobos instructions on how to prepare for the radioactive iodine treatment, including stopping the methimazole for 4 days before the treatment and restarting it 4 days after the treatment. We will try and get her treated as soon as possible since she would like the treatment done while she is [facility]. Of interest, Ms. Villalobos brings her 12-year-old daughter, Shweta, with her today. Shweta also has an easily visible large goiter. Although, the patient did not register and so we could not perform an official workup on her, we did give Ms. Villalobos a laboratory slip for thyroid function tests and a thyroid ultrasound for Shweta. I suspect that she has a euthyroid diffuse goiter based on my brief exam, but it would be important to know whether she has any nodules and whether she is, in fact, euthyroid. Based on this workup, we may well refer Shweta to pediatric beauty counselor or other specialist for further workup of her goiter. We will plan on seeing Ms. Villalobos back approximately 2 to 3 weeks after her radioactive iodine treatment to make sure her eyes are okay and that she is responding to the treatment. Lisa Logan M.D. Janelle Gibbs M.D. [facility] / [id number] / [id number] / [id number] / [id number] Tdocumented in this encounter Plan of Treatment Not on filedocumented as of this encounter Visit Diagnoses Not on filedocumented in this encounter"
--- OUTSIDE RECORDS SUMMARY | ~2019-06-19 | XMS | Encounter Summary ---
Demographics + + + | Address | [address] | | | [place] [address] | + + + | Home Phone | | + + + | Preferred Language | Unknown | + + + | Marital Status | Single | + + + | Christianity Affiliation | Unknown | + + + [...] Team Providers + +------+ + | Care Tissue Inserter Name | Role | Phone | + [...] as of this encounter Progress Notes Interface, Priming Machine Operator In - 02/02/2005 8:17 AM PDTClinic Date: [...] Fellow Lisa Logan M.D. EULA / JADA [id number] / [id number] / [id number] / [id number] cc: Dixon Jaramillo M.D. [address] [place], [place] [id number] signed by Interface, Priming Machine Operator In at 02/02/2005 8:17 AM PDTdocumented in this encounter Plan of Treatment Not on filedocumented as of this encounter Visit Diagnoses Not on filedocumented in this encounter"
--- OUTSIDE RECORDS SUMMARY | ~2019-06-19 | XMS | Encounter Summary ---
Demographics + + + | Address | [address] | | | [place] [address] | + + + | Home Phone [...] Team Providers + +------+ + | Care Forensic Audit Expert Name | Role | Phone | + [...] as of this encounter Progress Notes Interface, Filter Cleaner In - 01/17/2006 2:06 AM PDT [id number] [place] [facility] [id number] Referred From and Faxed To: Referred To: [...] a lab test by her PCP in [place]. She reports that antibodies were high and [...] given prescription to do it locally in [place]. Once we obtain the results, we will be calling the patient. No Levoxyl for now since the goal is to get the thyroid function tests in 3 weeks once she is off the medication for a total of 4 weeks. She also was given a referral to see Dr. Uziel Washburn, tumbling and rolling supervisor at [facility], for her Graves' ophthalmology, especially given [...] to schedule return visit. Kaelyn Sierra M.D. [facility] / [id number] / [id number] / [id number] / [id number] Electronically signed by Lisa Logan 01-16-2006 03:18:33 PM documented i n this encounter Plan of Treatment Not on filedocumented as of this encounter Visit Diagnoses Not on filedocumented in this encounter"
--- OUTSIDE RECORDS SUMMARY | ~2019-06-19 | XMS | Clinical Summary ---
Demographics + + + | Address | [address] | | | [place] [address] | + + + | Home Phone | | + + + | Preferred Language | Unknown | + + + | Marital Status | Single | + + + | Mosque Affiliation | Unknown | + + + [...] Team Providers + +------+ + | Care Clinical Secretary Name | Role | Phone | + +------+ + | Nicholas Denney DO | PCP | | + +------+ + Source Comments DELFINO is fully live on both [facility] Ambulatory and [facility] InPatient.[facility] Allergies No Known Allergies Medications + + [...]
--- OUTSIDE RECORDS SUMMARY | ~2019-06-19 | XMS | Encounter Summary ---
Demographics + + + | Address | [address] | | | [place] [address] | + + + | Home Phone | | + + + | Preferred Language | Unknown | + + + | Marital Status | Single | + + + | Cheondoism Affiliation | Unknown | + + + | Race | White | + + + | Ethnic Group | Not or | + + + Author + + + | Author | [facility] | + + + | Organization | [facility] | + + + | Address | Unknown | + + + | Phone | Unavailable | + + + Support + + +---------+ + | Name | Relationship | Address | Phone | + + +---------+ + | Christine Pacheco | ECON | Unknown | | + + +---------+ + Care Team Providers + +------+ + | Care Staffing Mgr Name | Role | Phone | + [...] as of this encounter Progress Notes Interface, Beamster In - 02/02/2005 9:09 AM PDT [id number] [facility] Date: 06/20/2004 Clinic: Endocrinology [...] Gibbs M.D. Endocrinlogy Fellow Henrry Shultz M.D. [place] / [id number] / [id number] / [id number] / [id number] cc: Dixon Jaramillo M.D. [address] [place] [address] 60491 documented i n this encounter Plan of Treatment Not on filedocumented as of this encounter Visit Diagnoses Not on filedocumented in this encounter"
--- OUTSIDE RECORDS SUMMARY | ~2019-06-19 | XMS | Encounter Summary ---
Demographics + + + | Address | [address] | | | [place] [address] | + + + | Home Phone | | + + + | Preferred Language | Unknown | + + + | Marital Status | Single | + + + | Zoroastrianism Affiliation | Unknown | + + + | Race | White | + + + | Ethnic Group | Not or | + + + Author + + + | Author | [facility] | + + + | Organization | [facility] | + + + | Address | Unknown | + + + | Phone | Unavailable | + + + Support + + +---------+ + | Name | Relationship | Address | Phone | + + +---------+ + | Christine Pacheco | ECON | Unknown | | + + +---------+ + Care Team Providers + +------+ + | Care Clinical Pharmacologist Name | Role | Phone | + +------+ + PCP | Unavailable | + +------+ + Encounter Details +--------+ + + + + | Date | Type | Department | Care Team | Description | +--------+ + + + + | 03/28/ | Office | [facility], | Clinic, [...] as of this encounter Progress Notes Interface, Swine Nutritionist In - 02/02/2005 8:29 AM PDT [id number] [facility] Date: 03/28/2004 Clinic: Endocrinology Subjective: This is an endocrinology attending note on Dottie Villalobos. I interviewed and examined Dottie with Dr. Janelle King in Endocrinology [facility]. I reviewed the patient's history and physical with Dr. King and interviewed and examined the patient and agreed with the essential findings as outlined in her note. Briefly, Dottie is well known to us in the Endocrinology Clinic. She has Graves' disease and was previously treated with methimazole. She subsequently underwent a radioactive iodine treatment with 29.9 mCi of radioactive iodine. She was found to have a very large gland 200 g and quite high uptake. Since being treated with radioactive iodine on February 23, 2004, she has reinitiated her methimazole. She said that she is feeling somewhat better with improvement in her symptoms but still has some symptoms. Her Graves' ophthalmopathy remains stable, although she continues to have some draining and eye symptoms. Physical Examination General: She is well appearing today. HEENT: On eye exam, I do note a little bit of lid lag and some ophthalmoplegia to the extremes of lateral gaze. Neck: Her thyroid is still quite enlarged, and she has a very fine tremor on extended arms. Clinical Impression: This is a 34-year-old woman with Graves' disease status post radioactive iodine ablation. What we will do is have her get thyroid function testing today to tell us whether she is going in the right direction with respect to her treatment, and we will call her with results and tests. We will have her return to clinic in 3 months' time. We will call her with results of her test with instructions on what to do with her antithyroid medication. Pedro Luis Wilkins M.D. It Telecom Techniciannewspaper press operator apprentice and Endocrinology Janelle Gibbs M.D. [facility] / [id number] / [id number] / [id number] / [id number] documented i n this encounter Plan of Treatment Not on filedocumented as of this encounter Visit Diagnoses Not on filedocumented in this encounter"
--- OUTSIDE RECORDS SUMMARY | ~2019-06-19 | XMS | Encounter Summary ---
Demographics + + + | Address | [address] | | | [place] [address] | + + + | Home Phone | | + + + | Preferred Language | Unknown | + + + | Marital Status | Single | + + + | Rastafari Affiliation | Unknown | + + + [...] Team Providers + +------+ + | Care Dermatology Specialist Name | Role | Phone | + [...] as of this encounter Progress Notes Interface, Driveway Sealer In - 01/17/2006 2:06 AM PDT [id number] [place] [facility] [id number] Referred From and Faxed To: Referred To: [...] a lab test by her PCP in [place]. She reports that antibodies were high and [...] given prescription to do it locally in [place]. Once we obtain the results, we will be calling the patient. No Levoxyl for now since the goal is to get the thyroid function tests in 3 weeks once she is off the medication for a total of 4 weeks. She also was given a referral to see Dr. Uziel Washburn, body care manager at [facility], for her Graves' ophthalmology, especially given that [...] to schedule return visit. Kaelyn Sierra M.D. [facility] / [id number] / [id number] / [id number] / [id number] Electronically signed by Lisa Logan 01-16-2006 03:18:33 PM documented i n this encounter Plan of Treatment Not on filedocumented as of this encounter Visit Diagnoses Not on filedocumented in this encounter"
--- OUTSIDE RECORDS SUMMARY | ~2019-06-19 | XMS | Clinical Summary ---
Demographics + + + | Address | [address] | | | [place] [address] | + + + | Home Phone | | + + + | Preferred Language | Unknown | + + + | Marital Status | Single | + + + | Temple Affiliation | Unknown | + + + [...] Phone | + + +---------+ + | Chrisitne Pacheco | ECON | Unknown | | + + +---------+ + Care Team Providers + +------+ + | Care Resolution Expert Name | Role | Phone | + +------+ + | Nicholas Denney DO | PCP | | + +------+ + Source Comments DELFINO is fully live on both [facility] Ambulatory and [facility] InPatient.[facility] Allergies No Known Allergies Medications + [...]
--- OUTSIDE RECORDS SUMMARY | ~2019-06-19 | XMS | Encounter Summary ---
Demographics + + + | Address | [address] | | | [place] [address] | + + + | Home Phone | | + + + | Preferred Language | Unknown | + + + | Marital Status | Single | + + + | Adventist Affiliation | Unknown | + + + | Race | White | + + + | Ethnic Group | Not or | + + + Author + + + | Author | [facility] | + + + | Organization | [facility] | + + + | Address | Unknown | + + + | Phone | Unavailable | + + + Support + + +---------+ + | Name | Relationship | Address | Phone | + + +---------+ + | Christine Pacheco | ECON | Unknown | | + + +---------+ + Care Team Providers + +------+ + | Care Pricer Bagger Name | Role | Phone | + [...] as of this encounter Progress Notes Interface, Sheet Roller Operator In - 02/02/2005 8:29 AM PDT [id number] [facility] Date: 03/28/2004 Clinic: Endocrinology Subjective: This is an endocrinology attending note on Dottie Villalobos. I interviewed and examined Dottie with Dr. Janelle King in Endocrinology [facility]. I reviewed the patient's history and [...] her antithyroid medication. Pedro Luis Wilkins M.D. Fire Hazard Inspectormechanical adjuster and Endocrinology Janelle Gibbs M.D. [facility] / [id number] / [id number] / [id number] / [id number] documented i n this encounter Plan of Treatment Not on filedocumented as of this encounter Visit Diagnoses Not on filedocumented in this encounter"
--- OUTSIDE RECORDS SUMMARY | ~2019-06-19 | XMS | Encounter Summary ---
Demographics + + + | Address | [address] | | | [place] [address] | + + + | Home Phone [...] + + + | Author | [facility] | + + + | Organization | [facility] | + + + | Address | Unknown | + + + | Phone | Unavailable | + + + Support + + +---------+ + | Name | Relationship | Address | Phone | + + +---------+ + | Christine Pacheco | ECON | Unknown | | + + +---------+ + Care Team Providers + +------+ + | Care Primary Montessori Teacher Name | Role | Phone | + +------+ + PCP | Unavailable | + +------+ + Encounter Details +--------+ + + + + | Date | Type | Department | Care Team | Description | +--------+ + + + + | 06/20/ | Results | Endocrinology, | Janelle King | | | 2003 | Only | Diabetes and | | | | | | Clinical Nutrition | | | | | | [address] | | | | | | [place] Mailcode: OPC5 | | | | | | Outpatient Clinic | | | | | | [facility] | | | | | | [place] [address] | | | | | | [phone] | | | +--------+ + + + [...] + | FREE T4 | Routin | 06/20/2004 | | Results for this | | | e | 5:21 PM | | procedure are in the | | | | PST | | results section. | + +--------+ + + + | TSH | Routin | 06/20/2004 | | Results for this | | | e | 5:21 PM | | procedure are in the | | | | PST | | results section. | + +--------+ + + + documented in this encounter Results FREE T4, SERUM (06/20/2004 5:21 PM PST) + + + + + + | Component | Value | Ref Range | Performed | Pathologist | | | | | At | Signature | + + + + + + | FREE T4, | 1.3Comment: Test | 0.7 - 1.8 ng/dL | | | | SERUM | performed by [place] | | | | | | [facility] | | | | | | [facility]. | | | | + + + + + + + + | Specimen | + + | | + + + + + + + | Performing | Address | City/State/Zipcode | Phone Number | | Organization | | | | + + + + + | [facility] | [address] | [place] [address] | | | LABORATORY | | | | + + + + + TSH-THYROID STIM HORMONE (06/20/2004 5:21 PM PST) + + + + + + | Component | Value | Ref Range | Performed | Pathologist | | | | | At | Signature | + + + + + + | TSH | 0.05 (L)Comment: Test | 0.28 - 5.00 | | | | | performed by [facility] | [facility] | | | | | [facility] | | | | | | Laboratories. | | | | + + + + + + + + | Specimen | + + | | + + + + + + + | Performing | Address | City/State/Zipcode | Phone Number | | Organization | | | | + + + + + | [facility] | [address] | [place] [address] | | | LABORATORY | | | | + + + + + documented in this encounter Visit Diagnoses Not on filedocumented in this encounter"
--- OUTSIDE RECORDS SUMMARY | ~2019-06-19 | XMS | Encounter Summary ---
Demographics + + + | Address | [address] | | | [place] [address] | + + + | Home Phone | | + + + | Preferred Language | Unknown | + + + | Marital Status | Single | + + + | Baptist Affiliation | Unknown | + + + | Race | White | + + + | Ethnic Group | Not or | + + + Author + + + | Author | [facility] | + + + | Organization | [facility] | + + + | Address | Unknown | + + + | Phone | Unavailable | + + + Support + + +---------+ + | Name | Relationship | Address | Phone | + + +---------+ + | Christine Pacheco | ECON | Unknown | | + + +---------+ + Care Team Providers + +------+ + | Care Design Engineering Intern Name | Role | Phone | + [...] as of this encounter Progress Notes Interface, Middleware Systems Architect In - 02/02/2005 8:29 AM PDT [id number] [facility] Date: 03/28/2004 Clinic: Endocrinology Diagnosis: Graves' disease. Subjective: Ms. Villalobos is now 4 weeks' out status post radioactive iodine ablation of her thyroid gland secondary to Graves' disease. She underwent treatment on February 23, 2004, with 29.9 millicuries of I-31. The patient has already noted significant improvement in her symptoms over the last 4 weeks. She did not resume her methimazole as instructed status post radioactive iodine, but did not suffer any negative consequences due to this. She reports that she is not feeling shaky as before and is sleeping much better. She is starting to experience some fatigue. Her diarrhea is much improved. The patient has not had any subjective symptoms in her neck. She reports that her thyroid gland is likely a lot smaller than it was just a month ago. She has had no pain or tenderness in her neck. She is not complaining of any significant eye symptoms, no worsening since her radioactive iodine treatment. She continues to complain of some double vision on extremes of lateral gaze, but she has no ophthalmoplegia. She is not complaining of any eye irritation, swelling, burning, or other subjective symptoms. Objective Vital Signs: Blood pressure 108/60, heart rate 76 and regular, respirations 12, weight 145.3 pounds, height 65-1/2 inches. HEENT: Her pupils are equal, round, and reactive to light and accommodation. Her extraocular muscles are intact. She does have some mild doubling of vision on extreme lateral gazes bilaterally. There is no ophthalmoplegia. She has proptosis in the right eye of 23 mm and in the left eye of 18 mm. There is no scleral injection. There is no periorbital edema. Neck: Supple. She has a enlarged thyroid gland that is very irregular in texture. There is a nodular texture to the right side of the gland. The gland weighs approximately 150 mg. It is reduced in size from previous visit. There is no tenderness. Lungs: Clear to auscultation bilaterally. Heart: Regular rate and rhythm without murmurs, rubs, or gallops. Extremities: No clubbing, cyanosis, or edema. Neurologic: She has 1+ reflexes in the bilateral upper and lower extremities with normal relaxation phases. There is no significant tremor in the outstretched hands bilaterally, only a fine tremor which is improved from previous visit. Laboratory Data: Thyroid function test obtained today revealed a free T4 of 1.7 with a TSH that is still suppressed. Assessment and Plan: 1. Graves' disease. The patient has evidence of Graves' ophthalmopathy. Her left eye appears less affected than the right. She has no ophthalmoplegia at this time and subjective symptoms. We will continue to monitor her eyes and recommend ophthalmologic evaluation should this become necessary. 2. Her subjective symptoms of hyperthyroidism have significantly improved. She is not currently being treated with beta blockers or antithyroid drugs at this point. Her thyroid functions indicate that she is having resolution of her hyperthyroidism at a rapid rate consistent with her high-dose I-131 therapy. She appears to be clinically mildly hyperthyroid at this time. We will plan to recheck laboratories in 6 weeks' time. She will plan to follow up in 3 months. This patient was seen and examined with Dr. Pedro Luis Wilkins who agrees with this assessment and plan. She was seen for 30 minutes of which time greater than 50% was spent in direct patient consultation regarding her diagnosis and treatment plan. Janelle Gibbs M.D. Pedro Luis Wilkins M.D. EULA / JADA [id number] / [id number] / [id number] / cc: Dixon Jaramillo M.D. [address], [place] [address] documented i n this encounter Plan of Treatment Not on filedocumented as of this encounter Visit Diagnoses Not on filedocumented in this encounter"
--- OUTSIDE RECORDS SUMMARY | ~2019-06-19 | XMS | Encounter Summary ---
Demographics + + + | Address | [address] | | | [place] [address] | + + + | Home Phone | | + + + | Preferred Language | Unknown | + + + | Marital Status | Single | + + + | Yazdanism Affiliation | Unknown | + + + | Race | White | + + + | Ethnic Group | Not or | + + + Author + + + | Author | [facility] | + + + | Organization | [facility] | + + + | Address | Unknown | + + + | Phone | Unavailable | + + + Support + + +---------+ + | Name | Relationship | Address | Phone | + + +---------+ + | Christine Pacheco | ECON | Unknown | | + + +---------+ + Care Team Providers + +------+ + | Care Vacuum System Tester Name | Role | Phone | + [...] [id number] | | | | | | [place], [place] | | | | | | [address] | | | | | | [phone] | | | +--------+ + + + [...]
--- OUTSIDE RECORDS SUMMARY | ~2019-06-19 | XMS | Encounter Summary ---
Demographics + + + | Address | [address] | | | [place] [address] | + + + | Home Phone | | + + + | Preferred Language | Unknown | + + + | Marital Status | Single | + + + | Restorationism Affiliation | Unknown | + + + | Race | White | + + + | Ethnic Group | Not or | + + + Author + + + | Author | [facility] | + + + | Organization | [facility] | + + + | Address | Unknown | + + + | Phone | Unavailable | + + + Support + + +---------+ + | Name | Relationship | Address | Phone | + + +---------+ + | Christine Pacheco | ECON | Unknown | | + + +---------+ + Care Team Providers + +------+ + | Care Slaughterer Religious Ritual Name | Role | Phone | + [...] | | Clinical Nutrition | [facility] [place], | | | | | [address] | [place] [address] | | | | | Loop Mailcode: OPC5 | [phone] | | | | | Outpatient Clinic | | | | | | [facility] [place] | | | | | | [place] [address] | | | | | | [phone] | | | +--------+ + + + [...] | | | | | ingested measured [id number] | | | | | | counts [...] | | + +---------+ + + | [facility] DEPARTMENT OF | | | | | [...] | | | | | ingested measured [id number] | | | | | | counts [...] | | + +---------+ + + | [facility] DEPARTMENT OF | | | | | RADIOLOGY | | | | + +---------+ + + documented in this encounter Visit Diagnoses Not on filedocumented in this encounter"
--- OUTSIDE RECORDS SUMMARY | ~2019-06-19 | XMS | Encounter Summary ---
Demographics + + + | Address | [address] | | | [place] [address] | + + + | Home Phone | | + + + | Preferred Language | Unknown | + + + | Marital Status | Single | + + + | Restorationist Affiliation | Unknown | + + + [...] Team Providers + +------+ + | Care Paper Reel Operator Name | Role | Phone | [...] as of this encounter Progress Notes Interface, Process Control Specialist In - 02/02/2005 8:17 AM PDTClinic Date: 02/15/2004 Clinic: Endocrinology Subjective: I saw Ms. Villalobos in the Endocrinology [facility] today in conjunction with a senior [...] we may well refer Shweta to pediatric professor of communication or other specialist for further workup of her goiter. We will plan on seeing Ms. Villalobos back approximately 2 to 3 weeks after her radioactive iodine treatment to make sure her eyes are okay and that she is responding to the treatment. Lisa Logan M.D. Janelle Gibbs M.D. [facility] / [id number] / [id number] / [id number] / [id number] Tdocumented in this encounter Plan of Treatment Not on filedocumented as of this encounter Visit Diagnoses Not on filedocumented in this encounter"
--- OUTSIDE RECORDS SUMMARY | ~2019-06-19 | XMS | Encounter Summary ---
Demographics + + + | Address | [address] | | | [place] [address] | + + + | Home Phone | | + + + | Preferred Language | Unknown | + + + | Marital Status | Single | + + + | Jew Affiliation | Unknown | + + + [...] Team Providers + +------+ + | Care Final Inspection Supervisor Name | Role | Phone | + [...] as of this encounter Progress Notes Interface, Location Man In - 02/02/2005 8:17 AM PDTClinic Date: 02/15/2004 Clinic: Endocrinology Subjective: I saw Ms. Villalobos in the Endocrinology [facility] today in conjunction with a senior [...] we may well refer Shweta to pediatric equalizing saw operator or other specialist for further workup of her goiter. We will plan on seeing Ms. Villalobos back approximately 2 to 3 weeks after her radioactive iodine treatment to make sure her eyes are okay and that she is responding to the treatment. Lisa Logan M.D. Janelle Gibbs M.D. [facility] / [id number] / [id number] / [id number] / [id number] Tdocumented in this encounter Plan of Treatment Not on filedocumented as of this encounter Visit Diagnoses Not on filedocumented in this encounter"
--- OUTSIDE RECORDS SUMMARY | ~2019-06-19 | XMS | Encounter Summary ---
Demographics + + + | Address | [address] | | | [place] [address] | + + + | Home Phone | | + + + | Preferred Language | Unknown | + + + | Marital Status | Single | + + + | Yarsanism Affiliation | Unknown | + + + | Race | White | + + + | Ethnic Group | Not or | + + + Author + + + | Author | [facility] | + + + | Organization | [facility] | + + + | Address | Unknown | + + + | Phone | Unavailable | + + + Support + + +---------+ + | Name | Relationship | Address | Phone | + + +---------+ + | Christine Pacheco | ECON | Unknown | | + + +---------+ + Care Team Providers + +------+ + | Care Rail Car Mechanic Name | Role | Phone | + [...] as of this encounter Progress Notes Interface, Insurance Law Specialist In - 02/02/2005 8:29 AM PDT [id number] [facility] Date: 03/28/2004 Clinic: Endocrinology [...] Pedro Luis Wilkins M.D. EULA / JADA [id number] / [id number] / [id number] / cc: Dixon Jaramillo M.D. [address], [place] [address] documented i n this encounter Plan of Treatment Not on filedocumented as of this encounter Visit Diagnoses Not on filedocumented in this encounter"
--- OUTSIDE RECORDS SUMMARY | ~2019-06-19 | XMS | Encounter Summary ---
Demographics + + + | Address | [address] | | | [place] [address] | + + + | Home Phone | | + + + | Preferred Language | Unknown | + + + | Marital Status | Single | + + + | Islam Affiliation | Unknown | + + + | Race | White | + + + | Ethnic Group | Not or | + + + Author + + + | Author | [facility] | + + + | Organization | [facility] | + + + | Address | Unknown | + + + | Phone | Unavailable | + + + Support + + +---------+ + | Name | Relationship | Address | Phone | + + +---------+ + | Christine Pacheco | ECON | Unknown | | + + +---------+ + Care Team Providers + +------+ + | Care Mechanics Handyman Name | Role | Phone | + [...] as of this encounter Progress Notes Interface, Prompt Care Rn In - 02/02/2005 8:29 AM PDT [id number] [facility] Date: 03/28/2004 Clinic: Endocrinology [...] Pedro Luis Wilkins M.D. EULA / JADA [id number] / [id number] / [id number] / cc: Dixon Jaramillo M.D. [address], [place] [address] documented i n this encounter Plan of Treatment Not on filedocumented as of this encounter Visit Diagnoses Not on filedocumented in this encounter"
--- OUTSIDE RECORDS SUMMARY | ~2019-06-19 | XMS | Encounter Summary ---
Demographics + + + | Address | [address] | | | [place] [address] | + + + | Home Phone | | + + + | Preferred Language | Unknown | + + + | Marital Status | Single | + + + | Sikhism Affiliation | Unknown | + + + | Race | White | + + + | Ethnic Group | Not or | + + + Author + + + | Author | [facility] | + + + | Organization | [facility] | + + + | Address | Unknown | + + + | Phone | Unavailable | + + + Support + + +---------+ + | Name | Relationship | Address | Phone | + + +---------+ + | Christine Pacheco | ECON | Unknown | | + + +---------+ + Care Team Providers + +------+ + | Care Blood Bank Calendar Control Clerk Name | Role | Phone | [...] Nutrition | | | | | | [address] | | | | | | [place] Mailcode: OPC5 | | | | | | Outpatient Clinic | | | | | | [facility] | | | | | | [place] [address] | | | | | | [phone] | | | +--------+ + + + [...] | | | SERUM | performed by [place] | | | | | | [facility] | | | | | | [facility]. | | | | + + + + + + + + | Specimen | + + | | + + + + + + + | Performing | Address | City/State/Zipcode | Phone Number | | Organization | | | | + + + + + | [facility] | [address] | [place] [address] | | | LABORATORY | | | [...] | [facility] | | | | | [facility] | | | | | | Laboratories. | | | | + + + + + + + + | Specimen | + + | | + + + + + + + | Performing | Address | City/State/Zipcode | Phone Number | | Organization | | | | + + + + + | [facility] | [address] | [place] [address] | | | LABORATORY | | | | + + + + + documented in this encounter Visit Diagnoses Not on filedocumented in this encounter"
--- OUTSIDE RECORDS SUMMARY | ~2019-06-19 | XMS | Encounter Summary ---
Demographics + + + | Address | [address] | | | [place] [address] | + + + | Home Phone | | + + + | Preferred Language | Unknown | + + + | Marital Status | Single | + + + | Samaritan Affiliation | Unknown | + + + | Race | White | + + + | Ethnic Group | Not or | + + + Author + + + | Author | [facility] | + + + | Organization | [facility] | + + + | Address | Unknown | + + + | Phone | Unavailable | + + + Support + + +---------+ + | Name | Relationship | Address | Phone | + + +---------+ + | Christine Pacheco | ECON | Unknown | | + + +---------+ + Care Team Providers + +------+ + | Care Manager Intern Name | Role | Phone | [...] Ron [facility] | | | | | [address] | [place] [address] | | | | | Loop Mailcode: OPC5 | | | | | | Outpatient Clinic | | | | | | [facility] | | | | | | [place] [address] | | | | | | [phone] | | | +--------+ + + + [...]
--- OUTSIDE RECORDS SUMMARY | ~2019-06-19 | XMS | Encounter Summary ---
Demographics + + + | Address | [address] | | | [place] [address] | + + + | Home Phone | | + + + | Preferred Language | Unknown | + + + | Marital Status | Single | + + + | Yarsani Affiliation | Unknown | + + + | Race | White | + + + | Ethnic Group | Not or | + + + Author + + + | Author | [facility] | + + + | Organization | [facility] | + + + | Address | Unknown | + + + | Phone | Unavailable | + + + Support + + +---------+ + | Name | Relationship | Address | Phone | + + +---------+ + | Christine Pacheco | ECON | Unknown | | + + +---------+ + Care Team Providers + +------+ + | Care Textile Machinery Instructor Name | Role | Phone | + [...] Ron Guzman | | | | | [address] | [place] [address] | | | | | Loop Mailcode: OPC5 | | | | | | Outpatient Clinic | | | | | | [facility] | | | | | | [place] [address] | | | | | | [phone] | | | +--------+ + + + [...]
--- OUTSIDE RECORDS SUMMARY | ~2019-06-19 | XMS | Encounter Summary ---
Demographics + + + | Address | [address] | | | [place] [address] | + + + | Home Phone | | + + + | Preferred Language | Unknown | + + + | Marital Status | Single | + + + | Evangelical Affiliation | Unknown | + + + [...] Team Providers + +------+ + | Care County Home Demonstrator Name | Role | Phone | + [...] Nutrition | | | | | | [address] | | | | | | [place] Mailcode: OPC5 | | | | | | Outpatient Clinic | | | | | | [facility] | | | | | | [place] [address] | | | | | | [phone] | | | +--------+ + + + [...] | | | SERUM | performed by [place] | | | | | | [facility] | | | | | | [facility]. | | | | + + + + + + + + | Specimen | + + | | + + + + + + + | Performing | Address | City/State/Zipcode | Phone Number | | Organization | | | | + + + + + | [facility] | [address] | [place] [address] | | | LABORATORY | | | [...] | [facility] | | | | | [facility] | | | | | | Laboratories. | | | | + + + + + + + + | Specimen | + + | | + + + + + + + | Performing | Address | City/State/Zipcode | Phone Number | | Organization | | | | + + + + + | [facility] | [address] | [place] [address] | | | LABORATORY | | | | + + + + + documented in this encounter Visit Diagnoses Not on filedocumented in this encounter"
--- OUTSIDE RECORDS SUMMARY | ~2019-06-19 | XMS | Encounter Summary ---
Demographics + + + | Address | [address] | | | [place] [address] | + + + | Home Phone | | + + + | Preferred Language | Unknown | + + + | Marital Status | Single | + + + | Shinto Affiliation | Unknown | + + + | Race | White | + + + | Ethnic Group | Not or | + + + Author + + + | Author | [facility] | + + + | Organization | [facility] | + + + | Address | Unknown | + + + | Phone | Unavailable | + + + Support + + +---------+ + | Name | Relationship | Address | Phone | + + +---------+ + | Christine Pacheco | ECON | Unknown | | + + +---------+ + Care Team Providers + +------+ + | Care Quahogger Name | Role | Phone | + [...] as of this encounter Progress Notes Interface, Operator/Assistant Foreman In - 01/10/2006 2:05 AM PDT [id number] [facility] [id number] Clinic Date: 01/08/2006 Clinic: Endocrinology Subjective: Ms. [...] we would like her seen by an image archivist before then to make sure she does not need any treatment or precautions due to her Graves eye disease. We have referred her to Dr. Uziel Washburn for this. Lisa Logan M.D. SHELIA / JADA [id number] / [id number] / [id number] / [id number] documented i n this encounter Plan of Treatment Not on filedocumented as of this encounter Visit Diagnoses Not on filedocumented in this encounter"
--- OUTSIDE RECORDS SUMMARY | ~2019-06-19 | XMS | Encounter Summary ---
Demographics + + + | Address | [address] | | | [place] [address] | + + + | Home Phone [...] + + + | Author | [facility] | + + + | Organization | [facility] | + + + | Address | Unknown | + + + | Phone | Unavailable | + + + Support + + +---------+ + | Name | Relationship | Address | Phone | + + +---------+ + | Christine Pacheco | ECON | Unknown | | + + +---------+ + Care Team Providers + +------+ + | Care Roaster Helper Name | Role | Phone | + [...] as of this encounter Progress Notes Interface, Dioramist In - 02/02/2005 8:29 AM PDT [id number] [facility] Date: 03/28/2004 Clinic: Endocrinology Subjective: This is an endocrinology attending note on Dottie Villalobos. I interviewed and examined Dottie with Dr. Janelle King in [facility]. I reviewed the patient's history and [...] her antithyroid medication. Pedro Luis Wilkins M.D. Underground Mine Superintendentfinishing supervisor plastic sheets and Endocrinology Janelle Gibbs M.D. [facility] / [id number] / [id number] / [id number] / [id number] documented i n this encounter Plan of Treatment Not on filedocumented as of this encounter Visit Diagnoses Not on filedocumented in this encounter"
--- OUTSIDE RECORDS SUMMARY | ~2019-06-19 | XMS | Encounter Summary ---
Demographics + + + | Address | [address] | | | [place] [address] | + + + | Home Phone | | + + + | Preferred Language | Unknown | + + + | Marital Status | Single | + + + | Restoration Affiliation | Unknown | + + + [...] Team Providers + +------+ + | Care Antenna Design Engineer Name | Role | Phone | [...] as of this encounter Progress Notes Interface, Jira Administrator In - 02/02/2005 8:17 AM PDTClinic Date: [...] Fellow Lisa Logan M.D. EULA / JADA [id number] / [id number] / [id number] / [id number] cc: Dixon Jaramillo M.D. [address] [place], [place] [id number] signed by Interface, Jira Administrator In at 02/02/2005 8:17 AM PDTdocumented in this encounter Plan of Treatment Not on filedocumented as of this encounter Visit Diagnoses Not on filedocumented in this encounter"
--- OUTSIDE RECORDS SUMMARY | ~2019-06-19 | XMS | Encounter Summary ---
Demographics + + + | Address | [address] | | | [place] [address] | + + + | Home Phone | | + + + | Preferred Language | Unknown | + + + | Marital Status | Single | + + + | Sabianist Affiliation | Unknown | + + + | Race | White | + + + | Ethnic Group | Not or | + + + Author + + + | Author | [facility] | + + + | Organization | [facility] | + + + | Address | Unknown | + + + | Phone | Unavailable | + + + Support + + +---------+ + | Name | Relationship | Address | Phone | + + +---------+ + | Christine Pacheco | ECON | Unknown | | + + +---------+ + Care Team Providers + +------+ + | Care Cad Programmer Name | Role | Phone | + [...] as of this encounter Progress Notes Interface, Steel Erector In - 01/10/2006 2:05 AM PDT [id number] [place] [id number] Clinic Date: 01/08/2006 Clinic: Endocrinology Subjective: Ms. [...] we would like her seen by an monomer recovery supervisor before then to make sure she does not need any treatment or precautions due to her Graves eye disease. We have referred her to Dr. Uziel Washburn for this. Lisa Logan M.D. SHELIA / JADA [id number] / [id number] / [id number] / [id number] documented i n this encounter Plan of Treatment Not on filedocumented as of this encounter Visit Diagnoses Not on filedocumented in this encounter"
--- OUTSIDE RECORDS SUMMARY | ~2019-06-19 | XMS | Encounter Summary ---
Demographics + + + | Address | [address] | | | [place] [address] | + + + | Home Phone | | + + + | Preferred Language | Unknown | + + + | Marital Status | Single | + + + | Synagogue Affiliation | Unknown | + + + | Race | White | + + + | Ethnic Group | Not or | + + + Author + + + | Author | [facility] | + + + | Organization | [facility] | + + + | Address | Unknown | + + + | Phone | Unavailable | + + + Support + + +---------+ + | Name | Relationship | Address | Phone | + + +---------+ + | Christine Pacheco | ECON | Unknown | | + + +---------+ + Care Team Providers + +------+ + | Care Technician Assistant Name | Role | Phone | + [...] | | Clinical Nutrition | [facility] [place], | | | | | [address] | [place] [address] | | | | | Loop Mailcode: OPC5 | [phone] | | | | | Outpatient Clinic | | | | | | [place] | | | | | | [place] [address] | | | | | | [phone] | | | +--------+ + + + [...] | | | | | ingested measured [id number] | | | | | | counts [...] | | + +---------+ + + | [facility] DEPARTMENT OF | | | | | [...] | | | | | ingested measured [id number] | | | | | | counts [...] | | + +---------+ + + | [facility] DEPARTMENT OF | | | | | RADIOLOGY | | | | + +---------+ + + documented in this encounter Visit Diagnoses Not on filedocumented in this encounter"
--- OUTSIDE RECORDS SUMMARY | ~2019-06-19 | XMS | Encounter Summary ---
Demographics + + + | Address | [address] | | | [place] [address] | + + + | Home Phone [...] Team Providers + +------+ + | Care Priming Mixture Carrier Name | Role | Phone | + [...] as of this encounter Progress Notes Interface, Procedures Tech In - 02/02/2005 7:08 AM PDTClinic Date: [...] Fellow Ayleen Young M.D. EULA / JADA [id number] / [id number] / [id number] / cc: Dixon Jaramillo M.D. [address], [place] [id number] signed by Interface, Procedures Tech In at 02/02/2005 7:08 AM PDTdocumented in this encounter Plan of Treatment Not on filedocumented as of this encounter Visit Diagnoses Not on filedocumented in this encounter
--- OUTSIDE RECORDS SUMMARY | ~2019-06-19 | XMS | Encounter Summary ---
Demographics + + + | Address | [address] | | | [place] [address] | + + + | Home Phone [...] Author + + + | Author | [facility] | + + + | Organization | [facility] | + + + | Address | Unknown | + + + | Phone | Unavailable | + + + Support + + +---------+ + | Name | Relationship | Address | Phone | + + +---------+ + | Christine Pacheco | ECON | Unknown | | + + +---------+ + Care Team Providers + +------+ + | Care Wastewater Treatment Plant Attendant Name | Role | Phone | [...] as of this encounter Progress Notes Interface, Stitching Department Supervisor In - 02/02/2005 9:09 AM PDT [id number] [place] Clinic Date: 06/20/2004 Clinic: Endocrinology [...] Gibbs M.D. Endocrinlogy Fellow Henrry Shultz M.D. [place] / [id number] / [id number] / [id number] / [id number] cc: Dixon Jaramillo M.D. [address] [place] [id number] documented i n this encounter Plan of Treatment Not on filedocumented as of this encounter Visit Diagnoses Not on filedocumented in this encounter"
--- OUTSIDE RECORDS SUMMARY | ~2019-06-19 | XMS | Encounter Summary ---
Demographics + + + | Address | [address] | | | [place] [address] | + + + | Home Phone [...] Team Providers + +------+ + | Care Locomotive Oiler Name | Role | Phone | + [...] [id number] | | | | | | [place], [place] | | | | | | [address] | | | | | | [phone] | | | +--------+ + + + [...]
[2019-06-19] MEDS ORDERED: LEVOXYL100 MCG PO (01:53)
--- NOTE | 2019-06-19 07:30 | NUR ---
PT ARRIVED TO UNIT AT 0710. PT DROWSY BUT ALERT AND ORIENTED TO ALL. DENIES PAIN, NAUSEA OR OTHER CONCERNS AT THIS TIME. AMB TO HOSPITAL BED FROM STRETCHER INDEPENDENTLY. AMB TO RESTROOM, VOIDED WITHOUT DIFFICULTY. AMB BACK TO BED. PT SR ON TELE MONITOR. LUNGS CLEAR THROUGHOUT. SKIN GROSSLY INTACT. SATTING 96% ON 2L NC. ORIENTED TO ROOM AND PLAN OF CARE. ASSESSMENT COMPLETED. CALL LIGHT WITHIN REACH.
--- NOTE | 2019-06-19 08:10 | NUR ---
PT NOTED TO FALL ASLEEP EASILY DURING ADMISSION ASSESSMENT. PT AWOKE EASILY O VOICE AT THIS TIME. REMAINS ALERT AND ORIENTED WHILE AWAKE. PT ASKED FOR ICE WATER, PROVIDED AT THIS TIME. CALL LIGHT WITHIN REACH.
--- NOTE | 2019-06-19 10:29 | NUR ---
PT SLEEPING OFF AND ON. AROUSES EASILY. REQUESTING SOMETHING TO EAT. ORDERED LUNCH AND PROVIDED PT WITH PUDDING, APPLESAUCE AND CRACKERS. CONT TO DENY PAIN OR NAUSEA. CALL LIGHT WITHIN REACH.
--- NOTE | 2019-06-19 10:54 | NUR ---
PT CALLED FOR ASSISTANCE TO RESTROOM, SBA, STEADY ON FEET. VOIDED LARGE AMOUNT AND REPORTS HAVING BM. AMB BACK TO BED. PT ANH SNACKS AND FLUIDS. CURRENTLY SATTING 96% ON 1LNC. REPORTS CHEST "SORENESS FROM WHEN THEY DID CPR". CALL LIGHT WITHIN REACH.
--- NOTE | 2019-06-19 12:19 | NUR ---
PT SBA TO RECLINER. BROTHER AND SISTER IN LAW AT BEDSIDE. PT NOW WEANED TO RA SATTING 97%. CALL LIGHT WITHIN REACH.
--- NOTE | 2019-06-19 12:53 | NUR ---
PT ATE APPROX 50% OF LUNCH, ANH WELL. AMB LONG HALLWAY WITH THIS RN. PT ANH WELL. SATS REMAINED 92-97% DURING AMB, HR UP TO 111 BUT RECOVERED QUICKLY TO 95 AT REST. PT REPORTED SOB BUT STATES "IT'S THE SAME AMOUNT OF SHORTNESS OF BREATH I USUALLY HAVE WITH ACTIVITY." CURRENTLY SITTING AT EDGE OF BED VISITING WITH BROTHER. CALL LIGHT WITHIN REACH.
[2019-06-19] MEDS ORDERED: NICOTINE GUM2 MG MM (13:19)
[2019-06-19] MEDS ORDERED: LEVOTHYROXINE112 MCG PO (13:20)
--- NOTE | 2019-06-19 13:45 | NUR ---
PT DRESSED INDEPENDENTLY. IV REMOVED BY NED SANTILLAN. DC INSTRUCTIONS REVIEWED WITH PT AND PT DULCE ROMAN. QUESTIONS ANSWERED. ALL PERSONAL BELONGINGS SENT WITH PT.
--- NOTE | 2019-06-19 16:14 | EKG ---
[facility] [address] [place] [address] Signed Normal sinus rhythm Possible Left atrial enlargement Prolonged QT Abnormal ECG No previous ECGs available Confirmed by DAVID PLASCENCIA MD ([id number]) on 06/19/2019 4:14:14 PM Electronically Signed By: DAVID PLASCENCIA MD 06/19/19 1614 PATIENT NAME: STAR HO JESSIE Electrocardiogram DATE OF : 70 PHYSICIAN: DAVID PLASCENCIA MD REPORT #: [id number] REPORT IS CONFIDENTIAL AND NOT TO BE RELEASED WITHOUT AUTHORIZATION
== END 2019-06-19 13:50 | disposition home or self-care (01) ==
LOC: ED 01:39 → CCU 01:40
PROVIDERS: ADMIT Internal Medicine
DX: J96.01 Acute respiratory failure with hypoxia (principal); J81.0 Acute pulmonary edema; F17.210 Nicotine dependence, cigarettes, uncomplicated; F15.10 Other stimulant abuse, uncomplicated; F32.9 Major depressive disorder, single episode, unspecified; E03.9 Hypothyroidism, unspecified; Z79.899 Other long term (current) drug therapy
CPT/HCPCS: 71045; 80053; 80176; 81001; 83735; 83880; 84443; 85025; 93005; 93010; 96361; 96374; 96375; 99285-25; 99406; G0378; G0480; J1885; J1940; J2310; J2405; J7030